=== PATIENT | male | born 1980 | race Two or more races ===

== ENCOUNTER 2023-11-03 09:10 | Emergency (ER) | payer MEDICAID ==
[~2023-11-03] VITALS: Ht 167.6 cm; Wt 70.4 kg
[2023-11-03] MEDS: HYDROcodone-ACET 5/325MG TAB PO ONE (09:44)
[2023-11-03] MEDS ORDERED: IBUP-1456 PO (10:16)
[2023-11-03] MEDS ORDERED: BACL10TA PO (10:16)
[2023-11-03 10:23] VITALS: BP 128/63; PULSE 66; RESP 18; TEMP 98; O2SAT 99
== END 2023-11-03 10:27 | disposition home or self-care (01) ==
LOC: ER 09:10
DX: M43.6 Torticollis (principal); M50.30 Other cervical disc degeneration, unspecified cervical region
CPT/HCPCS: 72040